=== PATIENT | male | born 1980 | race Caucasian/White ===

== ENCOUNTER 2021-03-24 11:13 | Emergency (ER) | payer SELFPAY ==
[~2021-03-24] VITALS: Ht 175.3 cm; Wt 65.9 kg
[2021-03-24 11:26] VITALS: BP 143/59; TEMP 97.9
[2021-03-24] MEDS ORDERED: PREDNISONE10 MG PO (12:49)
[2021-03-24] MEDS ORDERED: ZITHROMAX Z PA250 MG PO (12:49)
[2021-03-24] MEDS ORDERED: ZOFRAN ODT4 MG PO (12:50)
[2021-03-24 12:53] LABS: BASO # 0.1 (0.0-0.2); BASO % 0.7 % (0.0-2.0); EOS # 0.5 (0.0-0.7); EOS % 6.6 % (0-4.0); GRAN # 4.3 (1.4-6.5); GRAN % 60.1 % (42.2-75.2); HEMATOCRIT 38.4 % (42.0-52.0); HEMOGLOBIN 13.2 g/dl (13.5-18.0); LYMPH # 1.8 (1.2-3.4); LYMPH % 25.5 % (20.0-51.0); MEAN CELL VOLUME 93 fl (80.0-100.0); MEAN CORPUSCULAR HEMOGLOBIN 32 pg (27.0-31.0); MEAN CORPUSCULAR HGB CONC 34 g/dl (33.0-37.0); MEAN PLATELET VOLUME 9.3 fl (7.4-10.4); MONO # 0.5 (0.1-0.6); PLATELET COUNT 360 K/mm3 (130-400); RED BLOOD COUNT 4.13 M/mm3 (4.20-5.60); REDCELL DISTRIBUTION WIDTH-CV 12.8 % (11.5-14.5)
[2021-03-24 13:21] VITALS: PULSE 86
== END 2021-03-24 13:21 | disposition home or self-care (01) ==
LOC: COL.ER 11:13
PROVIDERS: Family Medicine
DX: L25.8 Unspecified contact dermatitis due to other agents (principal); M79.10 Myalgia, unspecified site; S40.862A Insect bite (nonvenomous) of left upper arm, initial encounter; S40.861A Insect bite (nonvenomous) of right upper arm, initial encounter; F17.210 Nicotine dependence, cigarettes, uncomplicated; F17.220 Nicotine dependence, chewing tobacco, uncomplicated; W57.XXXA Bitten or stung by nonvenomous insect and other nonvenomous arthropods, initial encounter